=== PATIENT | female | born 1975 | race Caucasian/White ===

== ENCOUNTER 2023-10-16 14:14 | Emergency (ER) | payer OTHER ==
[~2023-10-16] VITALS: Ht 175.3 cm; Wt 95.3 kg
[2023-10-16] MEDS: IV NS 0.9% 1,000 ML BAG IV ONE (15:00)
[2023-10-16] MEDS: METOCLOPRAMIDE HCL 10 MG/2 ML VIAL IV ONE (15:00)
[2023-10-16 15:08] LABS: BASOPHILS # (AUTO) 0.1 K/uL (0.0-0.2); BASOPHILS % (AUTO) 1.5 % (0.0-2.0); EOSINOPHILS # (AUTO) 0.2 K/uL (0.0-0.7); EOSINOPHILS % (AUTO) 2.7 % (0.0-6.0); HEMATOCRIT 39 % (33-45); HEMOGLOBIN 12.5 g/dL (11.5-14.8); LYMPHOCYTES # (AUTO) 1.1 K/uL (0.8-4.8); LYMPHOCYTES % (AUTO) 16.2 % (20.0-44.0); MEAN CORPUSCULAR HEMOGLOBIN 27 PG (26.0-33.0); MEAN CORPUSCULAR HGB CONC 33 g/dl (31.0-36.0); MEAN CORPUSCULAR VOLUME 84 fL (82-100); MONOCYTES # (AUTO) 0.3 K/uL (0.1-1.30); MONOCYTES % (AUTO) 4.9 % (2.0-12.0); NEUTROPHILS # (AUTO) 5.1 K/uL (1.8-8.9); NEUTROPHILS % (AUTO) 74.7 % (43.0-81.0); PLATELET COUNT (AUTO) 293 K/uL (150-450); RED BLOOD CELL COUNT(AUTO) 4.57 MIL/uL (4.0-5.2); RED CELL DISTRIBUTION WIDTH 15.8 % (11.5-15.0); WHITE BLOOD COUNT (AUTO) 6.8 K/uL (4.3-11.0)
[2023-10-16 15:16] LABS: CALCIUM, SERUM 8.7 mg/dL (8.5-10.1); CREATININE 0.9 mg/dL (0.6-1.3); POTASSIUM 3.1 mmol/L (3.5-5.1)
[2023-10-16 15:22] LABS: ALBUMIN 3.6 g/dL (3.4-5.0); BILIRUBIN,DIRECT 0.2 mg/dL (0.0-0.2); BILIRUBIN,TOTAL 0.8 mg/dL (0.2-1.0); TOTAL PROTEIN, SERUM 7.3 g/dL (6.4-8.2)
[2023-10-16] MEDS ORDERED: METOCLOPRAMIDE HCL 10 MG/2 ML VIAL ONE (15:37)
[2023-10-16] MEDS ORDERED: KETOROLAC TROMETHAMINE INJ 30 MG/ML VIAL ONE (15:37)
[2023-10-16] MEDS ORDERED: diphenhydrAMINE HCL 50 MG/ML VIAL ONE (15:37)
[2023-10-16] MEDS: diphenhydrAMINE HCL 50 MG/ML VIAL IV ONE (15:45)
[2023-10-16] MEDS ORDERED: METO-295 PO (16:24)
[2023-10-16] MEDS ORDERED: ACET-907 PO (16:24)
[2023-10-16] MEDS: KETOROLAC TROMETHAMINE INJ 30 MG/ML VIAL IV ONE (16:56)
[2023-10-16] MEDS ORDERED: CODE1CAP32 PO (16:57)
[2023-10-16 17:14] VITALS: BP 126/71; TEMP 97.9; O2SAT 99
[2023-10-16] MEDS ORDERED: LEVO150T8 PO (17:15)
== END 2023-10-16 17:15 | disposition home or self-care (01) ==
LOC: ER 14:14
DX: G43.909 Migraine, unspecified, not intractable, without status migrainosus (principal); R11.2 Nausea with vomiting, unspecified; R10.2 Pelvic and perineal pain
CPT/HCPCS: 99284; 96374; 96375; 96361; 85025; 80048; 80076; 36415; 84443; 84702; J1200; J2765; J1885; J7030

== ENCOUNTER 2024-01-20 19:56 | Emergency (ER) | payer OTHER ==
[~2024-01-20] VITALS: Ht 175.3 cm; Wt 99.8 kg
[~2024-01-20 19:56] MED LIST: ACET-907 PO; CODE1CAP32 PO; LEVO150T8 PO; METO-295 PO
[2024-01-20 20:20] VITALS: BP 192/118; TEMP 98.6; O2SAT 99
== END 2024-01-20 20:56 | disposition left against medical advice (07) ==
LOC: ER 19:58
DX: R10.9 Unspecified abdominal pain (principal); Z53.21 Procedure and treatment not carried out due to patient leaving prior to being seen by health care provider